=== PATIENT | female | born 1965 | race Caucasian/White ===

== ENCOUNTER 2016-05-06 19:47 | Emergency (ER) | payer MEDICARE, BC ==
[2016-05-06] MEDS ORDERED: SODIUM CHLORIDE 0.9% 1,000 ML IV STA (21:44)
[2016-05-06] MEDS ORDERED: ONDANSETRON 4 MG/2 ML VIAL IVP STA (21:44)
[2016-05-06] MEDS ORDERED: HYDROmorphone 1 MG/ML 1 ML SYRINGE IVP STA (21:44)
--- NOTE | 2016-05-06 21:59 | XR ---
EXAMINATION TYPE: XR KUB DATE OF EXAM: 05/06/2016 9:55 PM COMPARISON: NONE HISTORY: Pain TECHNIQUE: Single supine KUB image of the abdomen is obtained FINDINGS: Small bowel demonstrates no evidence for dilatation or air fluid levels. Gas and fecal material is seen in non-distended colon. No convincing evidence for pneumoperitoneum. No unusual calcifications. The lung bases are clear. The osseous structures are intact. IMPRESSION: 1. Overall nonobstructive bowel gas pattern.
[2016-05-06 22:01] LABS: Basophils # (A) 0.1 k/uL (0-0.2); Basophils % (A) 1 %; CH 31.4; CHCM 34.9; Eosinophils # (A) 0.1 k/uL (0-0.7); Eosinophils % (A) 1 %; HCT 43.2 % (34.0-46.0); HDW 2.41; HGB 14.5 gm/dL (11.4-16.0); Luc # (Auto) 0.13; Luc % (Auto) 1; Lymphocytes # (A) 3.1 k/uL (1.0-4.8); Lymphocytes % (A) 26 %; MCH 30.2 pg (25.0-35.0); MCHC 33.5 g/dL (31.0-37.0); MCV 90.2 fL (80.0-100.0); Mean Platelet Volume 7.6; Monocytes # (A) 0.6 k/uL (0-1.0); Monocytes % (A) 5 %; Neutrophils # (A) 7.9 k/uL (1.3-7.7); Neutrophils % (A) 66 %; RDW 12.5 % (11.5-15.5); WBC 11.9 k/uL (3.8-10.6)
[2016-05-06 22:06] LABS: Appearance,Urine Cloudy (Clear); Bilirubin,Urine Negative (Negative); Glucose,Urine (UA) Negative (Negative); Ketones,Urine Negative (Negative); Leukocyte Esterase,Urine Large (Negative); Mucus,Urine Occasional /hpf; Nitrite,Urine Negative (Negative); PH, Urine 5.5 (5.0-8.0); Particle Count 5915; Protein,Urine Trace (Negative); RBC,Urine 12 /hpf (0-5); Specific Gravity,Urine 1.019 (1.001-1.035); Squamous Epithelial Cell,Urine 4 /hpf (0-4); UA Billing (MACRO vs. MICRO) MICRO; Urobilinogen,Urine <2.0 mg/dL (<2.0); WBC,Urine >182 /hpf (0-5)
[2016-05-06 22:15] LABS: ALT 42 U/L (9-52); AST 27 U/L (14-36); Alkaline Phosphatase 81 U/L (38-126); Amylase 54 U/L (30-110); Anion Gap 11 mmol/L; Blood Urea Nitrogen 21 mg/dL (7-17); Calcium 9.9 mg/dL (8.4-10.2); Carbon Dioxide 28 mmol/L (22-30); Chloride 101 mmol/L (98-107); Glucose 95 mg/dL (74-99); Non-African American GFR(MDRD) >60 (>60 ml/min/1.73 sqM); Potassium 4.1 mmol/L (3.5-5.1); Sodium 140 mmol/L (137-145); Total Bilirubin 0.7 mg/dL (0.2-1.3); Total Protein 7.5 g/dL (6.3-8.2)
--- NOTE | 2016-05-06 23:32 | CT ---
EXAMINATION TYPE: CT abdomen pelvis wo con DATE OF EXAM: 05/06/2016 11:14 PM COMPARISON: 03/14/2016 HISTORY: LT Flank pain. Hx of kidney stones. Renal stone protocol CT DLP: 872.10 mGycm Automated exposure control for dose reduction was used. TECHNIQUE: Helical acquisition of images was performed from the lung bases through the pelvis. FINDINGS: There is mild linear density at the lung bases consistent with atelectasis. There is no pleural effus ion. There is a small hiatal hernia. Liver spleen pancreas appear normal. There are clips from cholecystectomy. There is no adrenal mass. Kidneys have normal size. There is no hydronephrosis. Ureters are not dilated. There is a 1 cm cyst o n the posterior right kidney. There is no sign of a renal calculus. There is no retroperitoneal adenopathy. There is no ascites. Appendix appears normal. I see no intest inal wall thickening. There are no dilated loops. Bladder distends smoothly. There is narrowing of th e L4-5 disc space with spur formation. IMPRESSION: THERE IS PATCHY ATELECTASIS AT THE LUNG BASES THIS IS SIMILAR TO OLD EXAM. NO RENAL STONE OR OBSTRUCT ION. NORMAL APPENDIX. THERE IS NO ADVERSE CHANGE COMPARED TO OLD EXAM.
--- NOTE | 2016-05-06 23:44 | ED ---
Abdominal Pain HPI - General Chief Complaint: Abdominal Pain Stated Complaint: poss kidney stone Time Seen by Provider: 05/06/16 21:23 Source: patient, family, RN notes reviewed Mode of arrival: ambulatory Limitations: no limitations - History of Present Illness Initial Comments: Patient is a 51-year-old female presenting to the with chief complaint of left flank pain for one day. Patient reports she has history of kidney stones. She states that this pain feels similar to previous kidney stones. She states that the pain is severe and mainly is in the left flank. She denies any specific abdominal pain. She denies any nausea or vomiting. States her pain currently 10 out of 10. There is any recent fever or chills. She denies dysuria , or UTI symptoms. Past medical history sigificant for left leg amuptation. - Related Data Home Medications Medication Instructions Recorded Confirmed Atorvastatin [Lipitor] 40 mg PO HS 05/06/16 05/06/16 Carisoprodol [Soma] 350 mg PO BID PRN 05/06/16 05/06/16 Cholecalciferol [Vitamin D3] 2,000 unit PO DAILY 05/06/16 05/06/16 Cyanocobalamin [Vitamin B-12] 1,000 mcg PO DAILY 05/06/16 05/06/16 Escitalopram [Lexapro] 20 mg PO DAILY 05/06/16 05/06/16 Gabapentin [Neurontin] 300 mg PO TID PRN 05/06/16 05/06/16 Hydrochlorothiazide [Hydrodiuril] 25 mg PO DAILY 05/06/16 05/06/16 LORazepam [Ativan] 1 mg PO DAILY PRN 05/06/16 05/06/16 Loratadine [Claritin] 10 mg PO DAILY 05/06/16 05/06/16 Meloxicam [Mobic] 7.5 mg PO DAILY 05/06/16 05/06/16 Multivitamins, Thera [Multivitamin] 1 tab PO DAILY 05/06/16 05/06/16 Travoprost [Travatan Z 0.004%] 1 drop LEFT EYE HS 05/06/16 05/06/16 Vitamin B Complex 1 cap PO DAILY 05/06/16 05/06/16 metFORMIN HCL [Glucophage] 500 mg PO BID 05/06/16 05/06/16 Previous Rx's Medication Instructions Recorded Acetaminophen-Codeine 300-30mg 1 tab PO Q4H PRN #12 tablet 05/07/16 [Tylenol #3] Ciprofloxacin HCl [Cipro] 500 mg PO Q12HR #14 tablet 05/07/16 Allergies Allergy/AdvReac Type Severity Reaction Status Date / Time clarithromycin [From Biaxin] AdvReac Severe Nausea & Verified 05/06/16 21:26 Vomiting Review of Systems ROS Statement: Those systems with pertinent positive or pertinent negative responses have been documented in the HPI. ROS Other: All systems not noted in ROS Statement are negative. Past Medical History Past Medical History: Diabetes Mellitus, Hyperlipidemia Additional Past Medical History / Comment(s): depression, anxiety, History of Any Multi-Drug Resistant Organisms: None Reported Past Psychological History: Anxiety, Depression Smoking Status: Current every day smoker Past Alcohol Use History: None Reported Past Drug Use History: None Reported General Exam - General Exam Comments Initial Comments: Patient is a pleasant 51-year-old female. She is on appear to be in any acute distress. Limitations: no limitations General appearance: alert, in no apparent distress Head exam: Present: atraumatic, normocephalic, normal inspection Eye exam: Present: normal appearance, PERRL, EOMI. Absent: scleral icterus, conjunctival injection, periorbital swelling ENT exam: Present: normal exam, mucous membranes moist Neck exam: Present: normal inspection. Absent: tenderness, meningismus, lymphadenopathy Respiratory exam: Present: normal lung sounds bilaterally. Absent: respiratory distress, wheezes, rales, rhonchi, stridor Cardiovascular Exam: Present: regular rate, normal rhythm, normal heart sounds. Absent: systolic murmur, diastolic murmur, rubs, gallop, clicks GI/Abdominal exam: Present: soft, tenderness (left flank), normal bowel sounds. Absent: distended, guarding, rebound, rigid Extremities exam: Present: normal inspection, full ROM, normal capillary refill. Absent: tenderness, pedal edema, joint swelling, calf tenderness Back exam: Present: normal inspection Neurological exam: Present: alert, oriented X3, CN II-XII intact Psychiatric exam: Present: normal affect, normal mood Course Vital Signs 05/06/16 05/06/16 05/07/16 19:50 22:26 01:33 Temperature 99.2 F 97.2 F L Pulse Rate 81 65 70 Respiratory 20 18 16 Rate Blood Pressure 143/78 118/65 140/85 O2 Sat by Pulse 97 96 95 Oximetry Medical Decision Making - Medical Decision Making Patient is a 51 year old female with approximately 2 days of left flank pain. Labs show evidence of UTI with many WBC and a few RBC. CT shows no stones and no signs of hydronephrosis or pyelonephritis. Patient reports pain is managed well at this time. Patient does have mild leukocytosis of 11.4. Patient given a gram of Rocephin for UTI in EC. PAtient states she would like to go home for the evening and follow up with PCP and urologist. Patient will be discharged with PO cipro and pain management. Patient understands treatment plan, and return parameters discussed. - Lab Data Result diagrams: 05/06/16 21:27 05/06/16 21:27 Lab Results 05/06/16 05/06/16 05/06/16 Range/Units 21:27 21:27 21:27 WBC 11.9 H (3.8-10.6) k/uL RBC 4.80 (3.80-5.40) m/uL Hgb 14.5 (11.4-16.0) gm/dL Hct 43.2 (34.0-46.0) % MCV 90.2 (80.0-100.0) fL MCH 30.2 (25.0-35.0) pg MCHC 33.5 (31.0-37.0) g/dL RDW 12.5 (11.5-15.5) % Plt Count 233 (150-450) k/uL Neutrophils % 66 % Lymphocytes % 26 % Monocytes % 5 % Eosinophils % 1 % Basophils % 1 % Neutrophils # 7.9 H (1.3-7.7) k/uL Lymphocytes # 3.1 (1.0-4.8) k/uL Monocytes # 0.6 (0-1.0) k/uL Eosinophils # 0.1 (0-0.7) k/uL Basophils # 0.1 (0-0.2) k/uL Sodium 140 (137-145) mmol/L Potassium 4.1 (3.5-5.1) mmol/L Chloride 101 (98-107) mmol/L Carbon Dioxide 28 (22-30) mmol/L Anion Gap 11 mmol/L BUN 21 H (7-17) mg/dL Creatinine 0.57 (0.52-1.04) mg/dL Est GFR (MDRD) Af Amer >60 (>60 ml/min/1.73 sqM) Est GFR (MDRD) Non-Af >60 (>60 ml/min/1.73 sqM) Glucose 95 (74-99) mg/dL Plasma Lactic Acid Mike (0.7-2.0) mmol/L Calcium 9.9 (8.4-10.2) mg/dL Total Bilirubin 0.7 (0.2-1.3) mg/dL AST 27 (14-36) U/L ALT 42 (9-52) U/L Alkaline Phosphatase 81 (38-126) U/L Total Protein 7.5 (6.3-8.2) g/dL Albumin 4.6 (3.5-5.0) g/dL Amylase 54 (30-110) U/L Lipase 186 (23-300) U/L Urine Color Yellow Urine Appearance Cloudy H (Clear) Urine pH 5.5 (5.0-8.0) Ur Specific [place] 1.019 (1.001-1.035) Urine Protein Trace H (Negative) Urine Glucose (UA) Negative (Negative) Urine Ketones Negative (Negative) Urine Blood Negative (Negative) Urine Nitrate Negative (Negative) Urine Bilirubin Negative (Negative) Urine Urobilinogen <2.0 (<2.0) mg/dL Ur Leukocyte Esterase Large H (Negative) Urine RBC 12 H (0-5) /hpf Urine WBC >182 H (0-5) /hpf Ur Squamous Epith Cells 4 (0-4) /hpf Urine Mucus Occasional H (None) /hpf 05/06/16 Range/Units 21:27 WBC (3.8-10.6) k/uL RBC (3.80-5.40) m/uL Hgb (11.4-16.0) gm/dL Hct (34.0-46.0) % MCV (80.0-100.0) fL MCH (25.0-35.0) pg MCHC (31.0-37.0) g/dL RDW (11.5-15.5) % Plt Count (150-450) k/uL Neutrophils % % Lymphocytes % % Monocytes % % Eosinophils % % Basophils % % Neutrophils # (1.3-7.7) k/uL Lymphocytes # (1.0-4.8) k/uL Monocytes # (0-1.0) k/uL Eosinophils # (0-0.7) k/uL Basophils # (0-0.2) k/uL Sodium (137-145) mmol/L Potassium (3.5-5.1) mmol/L Chloride (98-107) mmol/L Carbon Dioxide (22-30) mmol/L Anion Gap mmol/L BUN (7-17) mg/dL Creatinine (0.52-1.04) mg/dL Est GFR (MDRD) Af Amer (>60 ml/min/1.73 sqM) Est GFR (MDRD) Non-Af (>60 ml/min/1.73 sqM) Glucose (74-99) mg/dL Plasma Lactic Acid Mike 1.2 (0.7-2.0) mmol/L Calcium (8.4-10.2) mg/dL Total Bilirubin (0.2-1.3) mg/dL AST (14-36) U/L ALT (9-52) U/L Alkaline Phosphatase (38-126) U/L Total Protein (6.3-8.2) g/dL Albumin (3.5-5.0) g/dL Amylase (30-110) U/L Lipase (23-300) U/L Urine Color Urine Appearance (Clear) Urine pH (5.0-8.0) Ur Specific [place] (1.001-1.035) Urine Protein (Negative) Urine Glucose (UA) (Negative) Urine Ketones (Negative) Urine Blood (Negative) Urine Nitrate (Negative) Urine Bilirubin (Negative) Urine Urobilinogen (<2.0) mg/dL Ur Leukocyte Esterase (Negative) Urine RBC (0-5) /hpf Urine WBC (0-5) /hpf Ur Squamous Epith Cells (0-4) /hpf Urine Mucus (None) /hpf - Radiology Data Radiology results: report reviewed KUB shows no acute abnormalities, and normal gas pattern. Abdomen and Pelvis CT show no renal stones, continued atelectasis of bilateral lung bases from previous exams, and no other acute abnormalities. Disposition Clinical Impression: UTI (urinary tract infection) Disposition: HOME SELF-CARE Condition: Good Instructions: Urinary Tract Infection in Women (ED) Additional Instructions: Patient started to follow-up with primary care provider in one to 2 days For repeat urinalysis. Return to the EC if any alarming signs or symptoms occur. Follow-up with Dr. Kiran the urologist. Rest, increase fluids. Prescriptions: Acetaminophen-Codeine 300-30mg [Tylenol #3] 1 tab PO Q4H PRN #12 tablet PRN Reason: Pain Ciprofloxacin HCl [Cipro] 500 mg PO Q12HR #14 tablet Referrals: George Cardona MD [Primary Care Provider] - 1-2 days Time of Disposition: 00:46
[2016-05-07 01:34] VITALS: BP 140/85; PULSE 70; RESP 16; TEMP 97.2
== END 2016-05-07 01:33 | disposition home or self-care (01) ==
LOC: EC 19:47
DX: N39.0 Urinary tract infection, site not specified (principal); E78.5 Hyperlipidemia, unspecified; F17.200 Nicotine dependence, unspecified, uncomplicated; F41.9 Anxiety disorder, unspecified; F32.9 Major depressive disorder, single episode, unspecified; Z88.1 Allergy status to other antibiotic agents; Z79.899 Other long term (current) drug therapy; Z79.84 Long term (current) use of oral hypoglycemic drugs
CPT/HCPCS: 99284; 96374; 96375; 96361; 36415; 80053; 82150; 83605; 83690; 85025; 81001; 87040; 74000; 74176; J2405; J0696; J1170

== ENCOUNTER 2016-05-30 06:59 | Day surgery (SDC) | payer MEDICARE, BC ==
[2016-05-27 11:08] VITALS: BMI 33.5
[~2016-05-30 06:59] MED LIST: DEXAMETHASONE SOD PHOSPHATE 10 MG/ML 1 ML VIAL IV ONE; HYDROmorphone 1 MG/ML 1 ML SYRINGE IVP PRN; LACTATED RINGERS 1,000 ML IV SCH; MIDAZOLAM 2 MG/2 ML VIAL IV PRN; ONDANSETRON 4 MG/2 ML VIAL IVP ONE
[2016-05-30] MEDS ORDERED: LACTATED RINGERS 1,000 ML IV ONE (07:05)
[2016-05-30 07:20] VITALS: TEMP 09.2
[2016-05-30 07:41] LABS: Glucose,Whole Blood 111 mg/dL (75-99)
[2016-05-30] MEDS ORDERED: MIDAZOLAM 2 MG/2 ML VIAL ONE (08:25)
[2016-05-30] MEDS ORDERED: PROPOFOL 10 MG/ML 20 ML VIAL IV ONE (08:25)
[2016-05-30] MEDS ORDERED: ONDANSETRON 4 MG/2 ML VIAL ONE (08:25)
--- NOTE | 2016-05-30 08:54 | P.PCN ---
Date of Procedure: 05/30/16 Procedure(s) Performed: Procedure: Total colonoscopy. Preoperative diagnosis: Screening for neoplasia. Postoperative diagnosis: Exam within normal limits. Preparation: HalfLytely prep. Sedation: Was provided by anesthesia. Brief clinical history: The patient is a 51-year-old female who is referred for this evaluation for screening for neoplasia age being her risk factor. She has no abdominal complaints, bleeding or anemia. No family history of colon cancer. This would be her first colonoscopy. Procedure: With the patient on her left lateral decubitus position and after informed consent and adequate sedation, the perianal area was inspected and it did not show any fissures or fistulas. There were no masses felt on digital rectal examination. The Olympus CFQ 160L video colonoscope was then inserted in the rectum in the usual fashion and advanced to the cecum. The mucosa appeared healthy. No polyps or tumors were seen or any obvious diverticular disease or other pathology. I retroflexed endoscope in the rectum before the endoscope was withdrawn. The patient tolerated the procedure well. Plan: The patient was reassured. She will follow-up with you as planned and I recommended repeat exam in 10 years.
[2016-05-30 09:00] LABS: Glucose,Whole Blood 110 mg/dL (75-99)
[2016-05-30 09:13] VITALS: BP 118/84; PULSE 68; RESP 18
== END 2016-05-30 09:40 | disposition home or self-care (01) ==
LOC: ORWHC2ENDO 06:59
DX: Z12.11 Encounter for screening for malignant neoplasm of colon (principal); E78.5 Hyperlipidemia, unspecified; E11.9 Type 2 diabetes mellitus without complications; Z79.84 Long term (current) use of oral hypoglycemic drugs; F17.200 Nicotine dependence, unspecified, uncomplicated; F32.9 Major depressive disorder, single episode, unspecified; Z86.718 Personal history of other venous thrombosis and embolism; Z88.1 Allergy status to other antibiotic agents
CPT/HCPCS: J2250; J2405; J2704; G0121; 99153

== ENCOUNTER → 2016-06-04 | Outpatient (CLI) | payer MEDICARE, BC ==
--- NOTE | 2016-06-04 10:04 | MM ---
Reason for exam: screening (asymptomatic). Last mammogram was performed 1 year and 10 months ago. History: Patient had first child at age 31. Physical Findings: A clinical breast exam by your physician is recommended on an annual basis and results should be correlated with mammographic findings. MG 3D Screening Mammo W/Cad Bilateral CC and MLO view(s) were taken. Prior study comparison: July 29, 2014, bilateral MG screening mammo w CAD. March 17, 2012, [facility] DIGITAL LEFT BREAST MAMMOGRAM w/CAD. There are scattered fibroglandular densities. There is chronic nodularity bilaterally. There is no dominant lesion. ASSESSMENT: Benign, BI-RAD 2 RECOMMENDATION: Routine screening mammogram of both breasts in 1 year.
== END | disposition home or self-care (01) ==
LOC: RADMAMWWP 07:54
PROVIDERS: ATTEND Internal Medicine
DX: Z12.31 Encounter for screening mammogram for malignant neoplasm of breast (principal)
CPT/HCPCS: 77063; G0202

== ENCOUNTER → 2017-08-20 | Outpatient (CLI) | payer MEDICARE, BC ==
--- NOTE | 2017-08-22 10:15 | MM ---
Reason for exam: screening (asymptomatic). Last mammogram was performed 1 year and 3 months ago. History: Patient had first child at age 31. Physical Findings: A clinical breast exam by your physician is recommended on an annual basis and results should be correlated with mammographic findings. MG 3D Screening Mammo W/Cad Bilateral CC and MLO view(s) were taken. Prior study comparison: June 04, 2016, bilateral MG 3d screening mammo w/cad. July 29, 2014, bilateral MG screening mammo w CAD. The breast tissue is heterogeneously dense. This may lower the sensitivity of mammography. There are benign appearing stable circumscribed masses back to 2014. No suspicious abnormality. No significant changes when compared with prior studies. ASSESSMENT: Benign, BI-RAD 2 RECOMMENDATION: Routine screening mammogram of both breasts in 1 year.
== END | disposition home or self-care (01) ==
LOC: RADMAMWWP 15:53
PROVIDERS: ATTEND Internal Medicine
DX: Z12.31 Encounter for screening mammogram for malignant neoplasm of breast (principal)
CPT/HCPCS: 77063; 77067

== ENCOUNTER 2017-12-22 11:10 | Inpatient (IN) | payer MEDICARE, BC ==
[2017-12-22] MEDS ORDERED: SODIUM CHLORIDE 0.9% 1,000 ML IV ONE (11:37)
[2017-12-22] MEDS ORDERED: MORPHINE SULFATE 4 MG/ML SYRINGE IVP STA (11:37)
[2017-12-22 12:11] LABS: Basophils % (A) 1 %; Eosinophils # (A) 0.2 k/uL (0-0.7); Eosinophils % (A) 3 %; HCT 39.2 % (34.0-46.0); HGB 13.2 gm/dL (11.4-16.0); Lymphocytes # (A) 1.9 k/uL (1.0-4.8); Lymphocytes % (A) 35 %; MCH 30.2 pg (25.0-35.0); MCHC 33.7 g/dL (31.0-37.0); MCV 89.7 fL (80.0-100.0); Mean Platelet Volume 6.9; Monocytes # (A) 0.4 k/uL (0-1.0); Monocytes % (A) 7 %; Neutrophils # (A) 2.8 k/uL (1.3-7.7); Neutrophils % (A) 51 %; Platelet Count 188 k/uL (150-450); RBC 4.37 m/uL (3.80-5.40); RDW 13.1 % (11.5-15.5); WBC 5.4 k/uL (3.8-10.6)
[2017-12-22 12:16] LABS: Anion Gap 9 mmol/L; Blood Urea Nitrogen 13 mg/dL (7-17); Calcium 9.1 mg/dL (8.4-10.2); Carbon Dioxide 23 mmol/L (22-30); Chloride 105 mmol/L (98-107); Glucose 107 mg/dL (74-99); Potassium 4.1 mmol/L (3.5-5.1); Sodium 137 mmol/L (137-145)
--- NOTE | 2017-12-22 12:21 | ED ---
General Adult HPI - General Chief complaint: Headache Stated complaint: Headache, shingles Time Seen by Provider: 12/22/17 11:18 Source: patient Mode of arrival: wheelchair Limitations: physical limitation - History of Present Illness Initial comments: 52-year-old female presenting with intractable headache that has been present for the last 3 days. Patient states that she has had shingles for the past week now is currently taking Valtrex. She states the shingles are not causing her pain at this time. The headache is right-sided, sharp shooting, intermittent, without inciting event, exacerbated by touch, and not alleviated by anything. Today she has tried Excedrin, Tylenol, gabapentin without relief. She states this does not feel similar to previous migraines. Yesterday she had subjective fevers as well as chills. She denies any coagulopathy history and denies being on any blood thinners. Denies head trauma. She denies any focal weakness or numbness. - Related Data Home Medications Medication Instructions Recorded Confirmed Atorvastatin [Lipitor] 40 mg PO DAILY 05/06/16 12/22/17 Cholecalciferol [Vitamin D3] 2,000 unit PO DAILY 05/06/16 12/22/17 Cyanocobalamin [Vitamin B-12] 1,000 mcg PO DAILY 05/06/16 12/22/17 Gabapentin [Neurontin] 300 mg PO TID 05/06/16 12/22/17 Hydrochlorothiazide [Hydrodiuril] 25 mg PO DAILY 05/06/16 12/22/17 LORazepam [Ativan] 1 mg PO DAILY PRN 05/06/16 12/22/17 Meloxicam [Mobic] 7.5 mg PO DAILY 05/06/16 12/22/17 Multivitamins, Thera [Multivitamin] 1 tab PO DAILY 05/06/16 12/22/17 Vitamin B Complex 1 cap PO DAILY 05/06/16 12/22/17 metFORMIN HCL [Glucophage] 500 mg PO BID 05/06/16 12/22/17 Escitalopram [Lexapro] 10 mg PO DAILY 05/27/16 12/22/17 Ascorbic Acid [Vitamin C] 1,000 mg PO DAILY 12/22/17 12/22/17 Fexofenadine HCl [Marlys Allergy] 180 mg PO DAILY 12/22/17 12/22/17 Hydrocortisone/Acetic Acid 1 drop LEFT EYE HS 12/22/17 12/22/17 valACYclovir HCL [Valacyclovir] 1,000 mg PO TID 12/22/17 12/22/17 Previous Rx's Medication Instructions Recorded Acetaminophen-Codeine 300-30mg 1 tab PO Q4H PRN #12 tablet 05/07/16 [Tylenol #3] Allergies Allergy/AdvReac Type Severity Reaction Status Date / Time clarithromycin [From Biaxin] AdvReac Severe Nausea & Verified 12/22/17 11:54 Vomiting Review of Systems ROS Statement: Those systems with pertinent positive or pertinent negative responses have been documented in the HPI. Review of Systems Constitutional: Denies fever, chills Eyes: Denies change in vision, Denies pain Ears, nose, mouth, throat: Denies headaches, Denies sore throat Cardiovascular: Denies chest pain. Denies palpitations Respiratory: Denies shortness of breath, Denies cough Gastrointestinal: Denies abdominal pain. Denies nausea, vomiting, diarrhea. Genitourinary: Denies hematuria, Denies infections Musculoskeletal: Denies pain, Denies swelling Integumentary: Positive rash Neurological: Positive headache, focal weakness, focal numbness Psychiatric: Denies anxiety, Denies depression Hematologic/Lymphatic: Denies easy bleeding or bruising ROS Other: All systems not noted in ROS Statement are negative. Past Medical History Past Medical History: Diabetes Mellitus, Deep Vein Thrombosis (DVT), Hyperlipidemia Additional Past Medical History / Comment(s): hx migraines, kidney stones History of Any Multi-Drug Resistant Organisms: None Reported Past Surgical History: Section, Cholecystectomy, Orthopedic Surgery, Tonsillectomy Additional Past Surgical History / Comment(s): ACL left leg, left above knee amputation, lithotripsy x 2 Past Anesthesia/Blood Transfusion Reactions: Postoperative Nausea & Vomiting ( PONV) Past Psychological History: Depression Smoking Status: Current every day smoker Past Alcohol Use History: Rare Past Drug Use History: None Reported - Past Family History Father Family Medical History: Cancer General Exam - General Exam Comments Initial Comments: General: Awake, alert, No acute Distress HENT: Normocephalic. Atraumatic. Eyes: PERRL. EOMI. No scleral icterus. No injected conjunctiva Neck: Full ROM Chest/Lungs: Clear to auscultation bilaterally. No wheezing, rhonchi, or rales Cardiac: Regular rate, rhythm. No murmurs or rubs Abdomen/GI: Soft, nontender, nondistended. No rebound, guarding, or rigidity. Musculoskeletal: Full ROM. Left AKA Skin: Warm, dry. Right-sided arm erythematous, raised, vesicular rash in the mandibular branch of the trigeminal nerve as well as the C3 and C4 dermatomal region. No ocular involvement. No Blackmon sign. No Jann Davidson syndrome. Neurologic: A/Ox3, no weakness, no sensory deficit, no coordination deficit ( finger to nose intact). Facial nerves and facial muscles FERN )( Limitations: physical limitation Course Vital Signs 12/22/17 12/22/17 12/22/17 11:13 13:30 14:30 Temperature 98.4 F Pulse Rate 64 62 81 Respiratory 20 20 20 Rate Blood Pressure 133/69 125/59 136/56 O2 Sat by Pulse 98 97 99 Oximetry 12/22/17 12/22/17 12/22/17 16:45 17:45 19:22 Temperature 98.3 F 98.3 F Pulse Rate 70 82 82 Respiratory 20 20 20 Rate Blood Pressure 122/56 142/56 140/56 O2 Sat by Pulse 99 96 96 Oximetry Procedures - Lumbar Puncture Consent Obtained: written consent Time Out Performed: Yes Indication for Procedure: other (HSV encephalitis rule out) Patient Position: right lateral decubitus Skin Prep: Povidone-Iodine 1% Local Anesthetic Used: Lidocaine 1% Spinal Needle Gauge: 20G Spinal Needle Length: 3.5in Interspace Used: L3-L4 Complications: unable to obtain CSF Patient Tolerated Procedure: well Medical Decision Making - Medical Decision Making 52-year-old female presenting with headache. Initial exam the patient is awake alert she is tearful and holding her hands in her hand. She has a large vesicular rash extending to multiple dermatomes. Neurologically intact. Patient's laboratory workup unremarkable. CT was negative for acute process. Patient was consented for lumbar puncture. Three attempts were made but I was unable to obtain CSF. I spoke with Dr. Rivers who asked me to called Dr. Winters from infectious disease. I spoke with Dr. Winters who agreed with my treatment plan. I spoke with anesthesia who is unable to come down for the next few hours so elected to start Acyclovir. It was dosed for IDW and I discussed this with pharmacy. Patient currently stable for transfer to the floor. I spoke with anesthesiology and made them aware of the patient's room number. - Lab Data Result diagrams: 12/22/17 11:56 12/22/17 11:56 Lab Results 12/22/17 12/22/17 12/22/17 Range/Units 11:56 11:56 11:56 WBC 5.4 (3.8-10.6) k/uL RBC 4.37 (3.80-5.40) m/uL Hgb 13.2 (11.4-16.0) gm/dL Hct 39.2 (34.0-46.0) % MCV 89.7 (80.0-100.0) fL MCH 30.2 (25.0-35.0) pg MCHC 33.7 (31.0-37.0) g/dL RDW 13.1 (11.5-15.5) % Plt Count 188 (150-450) k/uL Neutrophils % 51 % Lymphocytes % 35 % Monocytes % 7 % Eosinophils % 3 % Basophils % 1 % Neutrophils # 2.8 (1.3-7.7) k/uL Lymphocytes # 1.9 (1.0-4.8) k/uL Monocytes # 0.4 (0-1.0) k/uL Eosinophils # 0.2 (0-0.7) k/uL Basophils # 0.0 (0-0.2) k/uL PT 9.9 (9.0-12.0) sec INR 1.0 (<1.2) Sodium 137 (137-145) mmol/L Potassium 4.1 (3.5-5.1) mmol/L Chloride 105 (98-107) mmol/L Carbon Dioxide 23 (22-30) mmol/L Anion Gap 9 mmol/L BUN 13 (7-17) mg/dL Creatinine 0.53 (0.52-1.04) mg/dL Est GFR (CKD-EPI)AfAm >90 (>60 ml/min/1.73 sqM) Est GFR (CKD-EPI)NonAf >90 (>60 ml/min/1.73 sqM) Glucose 107 H (74-99) mg/dL Calcium 9.1 (8.4-10.2) mg/dL Disposition 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
[2017-12-22 12:26] LABS: Prothrombin Time 9.9 sec (9.0-12.0)
--- NOTE | 2017-12-22 12:49 | CT ---
EXAMINATION TYPE: CT brain wo con DATE OF EXAM: 12/22/2017 COMPARISON: None HISTORY: Pain in head, Patient has shingles CT DLP: [address] of the brain was performed. The ventricles, basal cisterns and sulci overlying the cerebral convexities demonstrate mild enlargem ent. There is no evidence for intracranial hemorrhage or sulcal effacement. There is decreased attenuation about the periventricular white matter and deep white matter of both c erebral hemispheres, compatible with chronic small vessel ischemia. Differential diagnosis does inclu de demyelination. No mass effects are seen.No midline shift. Osseous calvarium is intact. If symptoms persist consider MRI. IMPRESSION: 1. Age related atrophic and chronic small vessel ischemic change without acute intracranial process s een at this time.
[2017-12-22] MEDS ORDERED: HYDROmorphone 1 MG/ML 1 ML SYRINGE IVP STA ×2 (13:31→15:28)
[2017-12-22] MEDS ORDERED: LIDOCAINE 2% SYG (PF) 100 MG/5 ML MISCELLANE STA (13:45)
[2017-12-22] MEDS ORDERED: LIDOCAINE 1% (PF) 10MG/ML VIAL SQ ONE (14:15)
[2017-12-22] MEDS ORDERED: LIDOCAINE (PF) 10 MG/ML 2 ML VIAL SQ STA (14:20)
[2017-12-22] MEDS ORDERED: LIDOCAINE 1% INJ 10MG/ML (20 ML MDV) SQ STA (14:20)
[2017-12-22] MEDS ORDERED: ACYCLOVIR SODIUM 650 MG in SODIUM CHLORIDE 0.9% 100 ML IV ONE (14:36)
[2017-12-22] MEDS ORDERED: traMADol 50 MG TAB PO PRN (16:01)
[2017-12-22] MEDS ORDERED: ONDANSETRON 4 MG/2 ML VIAL IVP PRN (16:01)
[2017-12-22] MEDS ORDERED: NALOXONE 0.4 MG/ML 1 ML VIAL IV PRN (16:01)
[2017-12-22] MEDS ORDERED: IBUPROFEN 400 MG TAB PO PRN (16:01)
[2017-12-22] MEDS ORDERED: LORazepam 1 MG TAB PO PRN (16:05)
[2017-12-22] MEDS: LACTATED RINGERS 1,000 ML IV SCH (18:24)
[2017-12-22] MEDS: HYDROmorphone 1 MG/ML 1 ML SYRINGE IVP PRN (20:22)
[2017-12-22 20:45] LABS: Glucose,Whole Blood 105 mg/dL (75-99)
[2017-12-22] MEDS ORDERED: fentaNYL (PF) 50 MCG/ML 2 ML AMP IVP ONE ×2 (21:32→21:40)
[2017-12-22] MEDS ORDERED: MIDAZOLAM 2 MG/2 ML VIAL IVP ONE (21:32)
[2017-12-22] MEDS ORDERED: LACTATED RINGERS 1,000 ML IV ONE (21:32)
--- NOTE | 2017-12-22 22:08 | P.PRCPDLP ---
Date of Procedure: 12/22/17 (ADULT L.P.) Pre-op Diagnosis: encephalitis Post-op Diagnosis: same Consent signed by: patient Position: lateral decubitus Prep: betadine Anesthesia: 1 % Lidocaine Sedation: other (versed 2mg fentanyl 100mcg) Needle size: 20 ga Needle length: 3.5 Interspace: L3-4, other (L1-2) Number of attempts: 1 Opening pressure: # cm H2O (12) Fluids mls collected: 12 Fluid description: clear Complications: No Patient tolerance: very well Procedure performed by: Diego Freeman Condition: stable Disposition: floor
[2017-12-22] MEDS: GABAPENTIN 300 MG CAP PO SCH (22:36)
[2017-12-22] MEDS: metFORMIN 500 MG TAB PO SCH (22:36)
[2017-12-22 23:12] LABS: Glucose,CSF 52 mg/dL (40-70); Total Protein,CSF 84 mg/dL (12-60)
[2017-12-22 23:43] LABS: Appearance,CSF Clear; CSF Tube Number 4; CSF Tube Volume 2.8; Red Blood Cell,CSF 6 u/L (0-10)
[2017-12-22 23:44] LABS: Nucleated Cells, CSF 112 u/L (0-5)
[2017-12-22 23:45] LABS: Diff, Total Cells Cnt, CSF 100; Mononuclear WBC,CSF 100 %
[2017-12-23] MEDS: HYDROmorphone 1 MG/ML 1 ML SYRINGE IVP PRN ×7 (00:31→21:07)
[2017-12-23] MEDS: SODIUM CHLORIDE 0.9% IV SCH ×3 (03:11→17:55)
[2017-12-23] MEDS: ACYCLOVIR SODIUM IV SCH ×3 (03:11→17:55)
[2017-12-23 07:32] LABS: Glucose,Whole Blood 102 mg/dL (75-99)
[2017-12-23 07:47] LABS: Basophils % (A) 0 %; Eosinophils # (A) 0.1 k/uL (0-0.7); Eosinophils % (A) 1 %; HCT 39.5 % (34.0-46.0); HGB 12.6 gm/dL (11.4-16.0); Lymphocytes # (A) 2.1 k/uL (1.0-4.8); Lymphocytes % (A) 24 %; MCH 29.2 pg (25.0-35.0); MCHC 31.9 g/dL (31.0-37.0); MCV 91.6 fL (80.0-100.0); Mean Platelet Volume 6.5; Monocytes # (A) 0.5 k/uL (0-1.0); Monocytes % (A) 6 %; Neutrophils # (A) 5.9 k/uL (1.3-7.7); Neutrophils % (A) 68 %; Platelet Count 198 k/uL (150-450); RBC 4.31 m/uL (3.80-5.40); RDW 13.2 % (11.5-15.5); WBC 8.8 k/uL (3.8-10.6)
[2017-12-23 07:57] LABS: Anion Gap 7 mmol/L; Blood Urea Nitrogen 11 mg/dL (7-17); Calcium 8.5 mg/dL (8.4-10.2); Carbon Dioxide 24 mmol/L (22-30); Chloride 106 mmol/L (98-107); Glucose 100 mg/dL (74-99); Potassium 3.8 mmol/L (3.5-5.1); Sodium 137 mmol/L (137-145)
[2017-12-23] MEDS: CHOLECALCIFEROL 1,000 UNIT TAB PO SCH (08:22)
[2017-12-23] MEDS: ATORVASTATIN 40 MG TAB PO SCH (08:22)
[2017-12-23] MEDS: ESCITALOPRAM 10 MG TAB PO SCH (08:23)
[2017-12-23] MEDS: GABAPENTIN 300 MG CAP PO SCH ×3 (08:23→21:06)
[2017-12-23] MEDS: CYANOCOBALAMIN 500 MCG TAB PO SCH (08:23)
[2017-12-23] MEDS: MELOXICAM 7.5 MG TAB PO SCH (08:23)
[2017-12-23] MEDS: metFORMIN 500 MG TAB PO SCH ×2 (08:24→21:06)
[2017-12-23] MEDS: MULTIVITAMINS, THERA 1 EACH TAB PO SCH (08:24)
[2017-12-23 12:16] LABS: Glucose,Whole Blood 110 mg/dL (75-99)
[2017-12-23] MEDS: VITAMIN B COMPLEX PO SCH (14:25)
[2017-12-23] MEDS: ASCORBIC ACID 500 MG TAB PO SCH (14:27)
[2017-12-23] MEDS: LORATADINE 10 MG TAB PO SCH (14:27)
[2017-12-23 17:26] LABS: Glucose,Whole Blood 109 mg/dL (75-99)
--- NOTE | 2017-12-23 17:50 | HP ---
HISTORY AND PHYSICAL DATE OF SERVICE: 12/23/2017 PRESENTING COMPLAINT: Headache and rash. HISTORY OF PRESENTING COMPLAINT: A very pleasant 52-year-old patient of Dr. George Cardona here with the father. Chronic stable medical conditions include diabetes, hyperlipidemia, depression. 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 The patient on 3 days ago was working in her father's garage, helping with a tractor leaking different fluids and a few insects in there too. That day in the evening, she noticed a rash around the neck and the jaw area. There was really no pain or fever. It became a bit worse the next day. At the same time, patient noticed headache was very localized like an ice pick in 2 different spots on the right side on the same side of the head of the head. The patient did notice some fever and chills at home. On Friday, patient did go to see Dr. Cardona, who thought that patient may have herpes zoster and prescribed her Valtrex. Because the headaches persisted, she decided to come down to the ER. Patient was started on IV acyclovir and also underwent a lumbar puncture that did show 112 nucleated cells and total protein of 84, though the patient's glucose was normal at 52. Denies any vision changes. No neck stiffness. REVIEW OF SYSTEMS: CONSTITUTIONAL: Some fever and chills. HEENT: As above. RESPIRATORY: Occasional cough. CARDIOVASCULAR: None. GASTROINTESTINAL: None. GENITOURINARY: None. MUSCULOSKELETAL: None. DERMATOLOGICAL: None. HEMATOLOGIC: None. LYMPHATIC: None. PSYCHIATRY: Depression. NEUROLOGICAL: As above. No focal signs otherwise. PAST MEDICAL HISTORY: Diabetes type 2, DVT in 2006, hyperlipidemia, kidney stones, depression. PAST SURGICAL HISTORY: , cholecystectomy, tonsillectomy, of left leg, left above-knee amputation from an injury, lithotripsy x2. PSYCH HISTORY: Depression. SOCIAL HISTORY: The patient smokes less than a pack a day for close to 31 years. The patient's works out of state and lives with her son. HOME MEDICATIONS: 1. Hydrocortisone 1 drop left ear q.h.s. 2. Ativan 0.5 mg daily p.r.n. 3. Neurontin 300 mg 3 times a day. 4. Valacyclovir 1000 mg t.i.d. 5. Glucophage 500 mg b.i.d. 6. Mobic 7.5 p.o. daily. 7. Lexapro 10 mg p.o. daily. 8. Lipitor 40 mg p.o. daily. 9. Vitamin C 1000 mg p.o. daily. 10.Vitamin B complex 1 capsule p.o. daily. 11.Multivitamin 1 tablet p.o. daily. 12.Hydrochlorothiazide 25 mg a day. 13.Marlys 180 mg a day. 14.Vitamin B12 1000 mcg p.o. daily. 15.Vitamin D3 2000 units p.o. daily. 16.Tylenol No. 3. ALLERGIES: To BIAXIN. EXAMINATION: Afebrile, pulse 64, respirations 20, blood pressure 130/69, pulse 98% on room air. GENERAL APPEARANCE: Well-built, BMI 33.5, sitting up. EYES: Pupils are equal. Conjunctivae normal. HEENT: The patient has a rash on the right side of the neck with . Minimal tenderness also extending to be high in the neck above the right scapula. RESPIRATORY: Effort normal. Slightly decreased breath sounds. CARDIOVASCULAR: First and second sounds normal. No edema. ABDOMEN: Soft, nontender. Liver and spleen not palpable. LYMPHATIC: No lymph node palpable in neck or axillae. PSYCHIATRY: Alert and oriented x3. Mood and affect normal. NEUROLOGICAL: Pupils equal. Cranial nerve grossly intact. Power and sensation grossly intact. EXTREMITIES: Left above-knee amputation. INVESTIGATIONS: White count 5.4, hemoglobin 13.2. Potassium 4.1, BUN and creatinine are normal. CSF shows 112 nucleated cells 84 is the protein, glucose is 52. ASSESSMENT: 1. 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 2. Obesity; BMI 33.5. 3. Diabetes mellitus type 2 on oral hypoglycemic. 4. Hyperlipidemia. 5. Depression, not otherwise specified. 6. Left lnkre-szs-iyln amputation. 7. Chronic nicotine dependence in a cigarette smoker. PLAN: The patient is on IV acyclovir. Home medications are resumed. Give Lovenox for DVT prophylaxis. Infectious Disease was consulted. Care was discussed with the patient and father at the bedside. Questions were answered. MMODL / IJN: [id number] /
[2017-12-23] MEDS: LACTATED RINGERS 1,000 ML IV SCH (17:56)
[2017-12-23 20:42] LABS: Glucose,Whole Blood 109 mg/dL (75-99)
[2017-12-23] MEDS: ACETIC ACID/HYDROCORTISONE 2-1% DROPS 10 ML BTL LEFT EAR SCH (21:06)
--- NOTE | 2017-12-23 21:08 | CONS ---
CONSULTATION DATE OF SERVICE: 12/23/2017 REASON FOR CONSULTATION: Right C3 dermatome zoster and a question of herpes encephalitis. HISTORY OF PRESENT ILLNESS: The patient is a 52-year-old female who started to develop a vesicular rash to the right side of her neck last Friday. The patient says she went to her physician and she was diagnosed with shingles. The patient started taking Valtrex 3 times a day; however, the patient is not sure about the dose, whether it was 1 gram or 500 mg. Subsequently she started having a headache that has been mostly on the right side of the head area. Pain is described to be more of a throbbing nature, almost 110 out of 10. The patient denies any associated photophobia. Some nausea and did have an episode of vomiting. The patient has tried Tylenol and gabapentin without any relief. Hence the patient presented to the [facility] ER. The patient was evaluated by the ER physician. The patient did have a CT of the brain that was negative for any acute bleed. The patient did not have any fever and her white count has been normal. With the question of possible herpes encephalitis, she has been admitted to hospital. An LP was requested but could not be completed in the ER. It was subsequently completed by Anesthesiology. Patient's protein was 84. Glucose was normal at 52. White count was 112 and mononuclear WBC. Infectious Disease was consulted for further recommendations regarding antibiotic and antiviral therapy. REVIEW OF SYSTEMS: CONSTITUTIONAL: Positive for weakness. Denies any high-grade fever. EYES: No complaint. ENT: No complaint. RESPIRATORY: No complaint. CARDIOVASCULAR: No complaint. GENITOURINARY: No complaint. GASTROINTESTINAL: As per HPI. MUSCULOSKELETAL: No complaint. INTEGUMENTARY: As per HPI. PSYCHOLOGICAL: No complaint. ENDOCRINE: No complaint. NEUROLOGICAL: No complaint. PAST MEDICAL HISTORY: 1. Diabetes mellitus. 2. DVT. 3. Hyperlipidemia. 4. History of migraine headache. 5. Kidney stone. PAST SURGICAL HISTORY: 1. . 2. Cholecystectomy. 3. Tonsillectomy. 4. Left kiqji-dzu-aosf amputation. 5. ACL left leg. 6. Lithotripsy . SOCIAL HISTORY: The patient is currently an everyday smoker. Rarely drinks. No drug use. FAMILY HISTORY: Father with history of cancer, though unknown type. ALLERGIES: CLARITHROMYCIN. CURRENT MEDICATIONS: 1. Tylenol. 2. Acyclovir 1 gram every 8 hours. 3. Vitamin C. 4. Lipitor. 5. Vitamin D3. 6. Vitamin B12. 7. Lexapro. 8. Neurontin. 9. Hydrochlorothiazide. 10.Dilaudid. 11.Lactated Ringer. 12.Claritin. 13.Ativan. 14.Mobic. 15.Glucophage. 16.Theragran. 17.Narcan. 18.Zofran. 19.Ultram. PHYSICAL EXAMINATION: Blood pressure is 101/53 with a pulse of 85, temperature 98.1. She is 92% on room air. General description is a middle-aged female up in the room in no distress. HEENT examination shows no pallor or scleral icterus. Oral mucosa membrane is moist. No pharyngeal erythema or thrush. NECK: Trachea is central. No thyromegaly. LUNGS: Unlabored breathing. Clear to auscultation anteriorly. No wheeze or crackle. HEART: S1, S2. Regular rate and rhythm. ABDOMEN: Soft. No tenderness. No guarding or rigidity. EXTREMITIES: No edema of feet. EXAMINATION OF THE SKIN: The right C3 dermatome distribution does have vesicular lesions, not crossing in the midline, with no evidence of any significant cellulitis. Neurologically the patient is awake, alert, oriented x3. Mood and affect normal. No signs of meningeal irritation. LABS: Hemoglobin is 12.6, white count of 8.8. BUN of 11, creatinine 0.55. Electrolytes have been normal. Protein mildly elevated at 84. Glucose normal. White count of 12, mostly mononuclear. DIAGNOSTIC IMPRESSION AND PLAN: Patient with right C3 dermatomal herpes zoster in a patient admitted to hospital with a headache with associated aseptic meningitis not entirely excluded. Clinically doubt encephalitis, though. The patient currently does not look toxic. Does not have a fever or elevated white count. PLAN: 1. Acyclovir 10 mg/kg IV piggyback q.8 hours to continue. 2. Await the HSV 1 and 2 PCR and the CSF that has already been sent. 3. Contact isolation droplet isolation. 4. We will follow up on clinical condition and culture to further adjust medication if needed. Thank you for this consultation. We will follow this patient along with you. MMODL / IJN: [id number] /
[2017-12-24] MEDS: SODIUM CHLORIDE 0.9% IV SCH ×3 (01:47→17:54)
[2017-12-24] MEDS: ACYCLOVIR SODIUM IV SCH ×3 (01:47→17:54)
[2017-12-24] MEDS: HYDROmorphone 1 MG/ML 1 ML SYRINGE IVP PRN (01:47)
[2017-12-24 07:10] LABS: Glucose,Whole Blood 110 mg/dL (75-99)
[2017-12-24] MEDS: GABAPENTIN 300 MG CAP PO SCH ×3 (08:10→20:21)
[2017-12-24] MEDS: HYDROCHLOROTHIAZIDE 25 MG TAB PO SCH (08:10)
[2017-12-24] MEDS: ATORVASTATIN 40 MG TAB PO SCH (08:10)
[2017-12-24] MEDS: LORATADINE 10 MG TAB PO SCH (08:10)
[2017-12-24] MEDS: metFORMIN 500 MG TAB PO SCH ×2 (08:10→20:21)
[2017-12-24] MEDS: ASCORBIC ACID 500 MG TAB PO SCH (08:10)
[2017-12-24] MEDS: CHOLECALCIFEROL 1,000 UNIT TAB PO SCH (08:10)
[2017-12-24] MEDS: ESCITALOPRAM 10 MG TAB PO SCH (08:10)
[2017-12-24] MEDS: CYANOCOBALAMIN 500 MCG TAB PO SCH (08:10)
[2017-12-24] MEDS: MELOXICAM 7.5 MG TAB PO SCH (08:10)
[2017-12-24] MEDS: VITAMIN B COMPLEX PO SCH (08:11)
[2017-12-24] MEDS: MULTIVITAMINS, THERA 1 EACH TAB PO SCH (08:11)
[2017-12-24] MEDS: HYDROmorphone 4 MG TABLET PO PRN ×4 (08:14→22:22)
[2017-12-24 12:03] LABS: Glucose,Whole Blood 151 mg/dL (75-99)
[2017-12-24] MEDS: LACTATED RINGERS 1,000 ML IV SCH (15:42)
[2017-12-24 17:09] LABS: Glucose,Whole Blood 109 mg/dL (75-99)
[2017-12-24 17:37] LABS: Hemoglobin A1C 6.1 % (4.0-6.0)
[2017-12-24] MEDS: ACETIC ACID/HYDROCORTISONE 2-1% DROPS 10 ML BTL LEFT EAR SCH (20:22)
[2017-12-24 20:29] LABS: Glucose,Whole Blood 115 mg/dL (75-99)
--- NOTE | 2017-12-24 23:18 | PN ---
PROGRESS NOTE DATE OF SERVICE: 12/24/2017. REASON FOR FOLLOWUP: 1. Right C3 dermatome zoster. 2. Possible aseptic meningitis. INTERVAL HISTORY: The patient is afebrile. She has been breathing comfortably. Still complaining of headache to mostly the right side of the head area. The patient does report being bitten by her cat and she was not sharing the bed with her. Currently, there is no swelling, redness on the right side of the head area. Rash to the right side of the neck has not showing any worsening. No new rash. The patient denies having any chest pain, shortness of breath or cough. No abdominal pain. No diarrhea. EXAMINATION: Blood pressure 115/59 with a pulse of 73, temperature is 97.7. She is 94% on room air. General description is a middle-aged female lying in bed in no distress. RESPIRATORY SYSTEM: Unlabored breathing. Clear to auscultation anteriorly. HEART: S1, S2. Regular rate and rhythm. ABDOMEN: Soft. No tenderness. SKIN: The right C3 dermatome zoster rash. No worsening. No secondary cellulitis and not crossing the midline. Examination of the right side of the head currently with no evidence of any swelling, redness or any bite hurtado. LABS: HSV DNA by PCR is negative in the CSF. DIAGNOSTIC IMPRESSION AND PLAN: 1. Patient admitted to the hospital with right C3 dermatome zoster for which the patient will continue on IV acyclovir, transition to oral on discharge. 2. Patient with a headache and abnormal cerebrospinal fluid finding more toward possible aseptic meningitis, not an encephalitis. Herpes simplex virus DNA by PCR was negative on the cerebrospinal fluid. We will continue to monitor the patient closely. Continue with supportive care. MMODL / IJN: [id number] /
--- NOTE | 2017-12-24 23:41 | PN ---
PROGRESS NOTE DATE OF SERVICE: 12/24/2017 PRESENTING COMPLAINT: Rash, headache. INTERVAL HISTORY: This is a patient who was admitted with a diagnosis of herpes zoster and also herpes zoster meningitis. The patient did tell me this morning that she had a cat bite to the head about 2 weeks ago. There is no lesion on the head. I did discuss with Dr. Winters. We both agreed there is no clinical connection to the current presentation. The patient's headache is better. The patient is awake, tolerating a diet, sitting up, cheerful. Son is present. REVIEW OF SYSTEMS: Done for constitutional, cardiovascular, GI, pulmonary; relevant findings as above. CURRENT MEDICATIONS: Reviewed that include IV acyclovir. EXAMINATION: Afebrile, pulse 76, respirations 20, blood pressure 115/59, pulse ox 94% on room air. GENERAL APPEARANCE: Sitting up, comfortable, smiling. EYES: Pupils equal. Conjunctivae normal. HEENT: There is a rash on the right side of the neck. RESPIRATORY: Effort normal. Lungs are clear. CARDIOVASCULAR: First and second sounds normal. No edema. ABDOMEN: Soft, nontender. Liver and spleen not palpable. PSYCHIATRY: Alert and oriented x3. Mood and affect were normal. INVESTIGATIONS: Accu-Cheks are noted. Herpes simplex virus 1 and 2 DNA PCR not detected. ASSESSMENT: 1. Possible herpes zoster meningitis, not encephalitis, and herpes zoster in C2-C3 dermatome with acute presentation. 2. Obesity; BMI 33.5. 3. Diabetes mellitus type 2 on oral hypoglycemic. 4. Hyperlipidemia. 5. Depression, not otherwise specified. 6. Left above-knee amputation. 7. Chronic nicotine dependence in a cigarette smoker. PLAN: Continue with IV acyclovir. Care was discussed with Dr. Winters from infectious disease. The patient clinically is doing better. Follow. MMODL / IJN: [id number] /
[2017-12-25] MEDS: SODIUM CHLORIDE 0.9% IV SCH ×3 (02:39→17:58)
[2017-12-25] MEDS: ACYCLOVIR SODIUM IV SCH ×3 (02:39→17:58)
[2017-12-25] MEDS: HYDROmorphone 4 MG TABLET PO PRN ×3 (02:39→18:10)
[2017-12-25 07:23] LABS: Glucose,Whole Blood 130 mg/dL (75-99)
[2017-12-25 08:31] LABS: Basophils % (A) 0 %; Eosinophils # (A) 0.1 k/uL (0-0.7); Eosinophils % (A) 1 %; HCT 38.2 % (34.0-46.0); HGB 11.9 gm/dL (11.4-16.0); Lymphocytes # (A) 1.4 k/uL (1.0-4.8); Lymphocytes % (A) 19 %; MCH 29.8 pg (25.0-35.0); MCHC 31.3 g/dL (31.0-37.0); MCV 95.2 fL (80.0-100.0); Monocytes # (A) 0.5 k/uL (0-1.0); Monocytes % (A) 6 %; Neutrophils # (A) 5.3 k/uL (1.3-7.7); Neutrophils % (A) 71 %; Platelet Count 180 k/uL (150-450); RBC 4.01 m/uL (3.80-5.40); RDW 13.5 % (11.5-15.5); WBC 7.4 k/uL (3.8-10.6)
[2017-12-25 08:53] LABS: Albumin 3.3 g/dL (3.5-5.0); Calcium 8.9 mg/dL (8.4-10.2); Potassium 4.2 mmol/L (3.5-5.1); Total Bilirubin 1.2 mg/dL (0.2-1.3); Total Protein 5.9 g/dL (6.3-8.2)
[2017-12-25] MEDS: ASCORBIC ACID 500 MG TAB PO SCH (09:15)
[2017-12-25] MEDS: CYANOCOBALAMIN 500 MCG TAB PO SCH (09:15)
[2017-12-25] MEDS: ATORVASTATIN 40 MG TAB PO SCH (09:15)
[2017-12-25] MEDS: MELOXICAM 7.5 MG TAB PO SCH (09:16)
[2017-12-25] MEDS: LORATADINE 10 MG TAB PO SCH (09:16)
[2017-12-25] MEDS: ESCITALOPRAM 10 MG TAB PO SCH (09:16)
[2017-12-25] MEDS: HYDROCHLOROTHIAZIDE 25 MG TAB PO SCH (09:16)
[2017-12-25] MEDS: metFORMIN 500 MG TAB PO SCH ×2 (09:16→20:42)
[2017-12-25] MEDS: CHOLECALCIFEROL 1,000 UNIT TAB PO SCH (09:16)
[2017-12-25] MEDS: VITAMIN B COMPLEX PO SCH (09:17)
[2017-12-25] MEDS: GABAPENTIN 300 MG CAP PO SCH ×3 (09:17→20:42)
[2017-12-25] MEDS: MULTIVITAMINS, THERA 1 EACH TAB PO SCH (09:17)
[2017-12-25 11:28] LABS: Glucose,Whole Blood 119 mg/dL (75-99)
--- NOTE | 2017-12-25 14:07 | PN ---
PROGRESS NOTE DATE OF SERVICE: 12/25/2017 REASON FOR FOLLOWUP: 1. Right C3 dermatome zoster. 2. Aseptic meningitis. INTERVAL HISTORY: The patient is currently afebrile. She is still complaining of pain to the right side of the head area. Patient denies having any chest pain, shortness of breath or cough. No abdominal pain, no worsening of the rash. PHYSICAL EXAMINATION: Blood pressure 116/56 with a pulse of 80, temperature 96.9. She is 92% on room air. General description is a middle-aged female, up in the bed in no distress. HEENT EXAMINATION: Rash to the right C3 dermatome with no worsening. No rash was noticed in the skull area. LUNGS: Unlabored breathing, clear to auscultation anteriorly. HEART: S1, S2. Regular rate and rhythm. ABDOMEN: Soft, no tenderness. LABS: Hemoglobin 11.1, white count 7.4, BUN of 12, creatinine 1.01. DIAGNOSTIC IMPRESSION AND PLAN: 1. Patient with right C3 dermatome zoster for which the patient will continue on the IV acyclovir, transition to the oral to finish a 7-day course of therapy. 2. Patient with possible aseptic meningitis. Clinically doubt encephalitis or HSV. was negative as well. Plan of care discussed with the admitting physician. MMODL / IJN: [id number] /
[2017-12-25] MEDS: LACTATED RINGERS 1,000 ML IV SCH (16:12)
[2017-12-25 17:04] LABS: Glucose,Whole Blood 109 mg/dL (75-99)
[2017-12-25] MEDS: ACETIC ACID/HYDROCORTISONE 2-1% DROPS 10 ML BTL LEFT EAR SCH (20:41)
[2017-12-25 20:45] LABS: Glucose,Whole Blood 121 mg/dL (75-99)
[2017-12-26] MEDS: SODIUM CHLORIDE 0.9% IV SCH ×3 (02:40→16:51)
[2017-12-26] MEDS: ACYCLOVIR SODIUM IV SCH ×3 (02:40→16:51)
[2017-12-26] MEDS: ACETAMINOPHEN TAB 325 MG TAB PO PRN ×2 (06:40→12:42)
[2017-12-26 07:28] LABS: Glucose,Whole Blood 125 mg/dL (75-99)
--- NOTE | 2017-12-26 07:38 | PN ---
PROGRESS NOTE DATE OF SERVICE: 12/25/2017 PRESENTING COMPLAINT: Rash, headache. INTERVAL HISTORY: This is a patient who presented with C2-C3 dermatome, herpes zoster infection and aseptic meningitis. Patient's herpes simplex virus PCR came back to be negative. Patient still has some headache on the right side. Otherwise, patient is comfortable, tolerating a diet, cheerful. Patient's and father present. No fever, no chills. REVIEW OF SYSTEMS: Done for constitutional, cardiovascular, GI, pulmonary, neuro; relevant findings as above. CURRENT MEDICATIONS: Include IV acyclovir. PHYSICAL EXAMINATION: Afebrile, pulse 72, respiration 16, blood pressure 109/67, pulse 94% on room air. GENERAL APPEARANCE: Sitting up, awake, comfortable, smiling. EYES: Pupils equal, conjunctivae are normal. HEENT: External appearance of nose and ear normal, oral cavity normal. Right-sided neck shows the rash is healing. RESPIRATORY: Effort normal. Lungs are clear. CARDIOVASCULAR: First and second sounds normal. No edema. ABDOMEN: Soft, nontender. Liver and spleen not palpable. PSYCHIATRY: Alert and oriented x3. Mood and affect normal. Left above-knee amputation. INVESTIGATIONS: White count 8.8, hemoglobin 12.6. ASSESSMENT: 1. Herpes zoster in the C2-C3 dermatome. 2. Aseptic meningitis, patient's herpes simplex virus is negative as discussed with Dr. Winters. 3. Obesity; body mass index 33.5. 4. Diabetes mellitus type 2 on oral hypoglycemic. 5. Hyperlipidemia. 6. Depression, not otherwise specified. 7. Chronic left above-knee amputation. 8. Chronic nicotine dependence, patient is a cigarette smoker. PLAN: Continue with IV acyclovir given there are still episodes of headaches which likely is from the aseptic meningitis. Will do an MRI of the brain with and without contrast. Care was discussed at length with the patient, the and the father. MMODL / IJN: [id number] /
[2017-12-26] MEDS: VITAMIN B COMPLEX PO SCH (08:10)
[2017-12-26] MEDS: ATORVASTATIN 40 MG TAB PO SCH (08:12)
[2017-12-26] MEDS: MULTIVITAMINS, THERA 1 EACH TAB PO SCH (08:12)
[2017-12-26] MEDS: ESCITALOPRAM 10 MG TAB PO SCH (08:12)
[2017-12-26] MEDS: CHOLECALCIFEROL 1,000 UNIT TAB PO SCH (08:12)
[2017-12-26] MEDS: GABAPENTIN 300 MG CAP PO SCH ×2 (08:12→15:13)
[2017-12-26] MEDS: CYANOCOBALAMIN 500 MCG TAB PO SCH (08:12)
[2017-12-26] MEDS: HYDROCHLOROTHIAZIDE 25 MG TAB PO SCH (08:12)
[2017-12-26] MEDS: ASCORBIC ACID 500 MG TAB PO SCH (08:12)
[2017-12-26] MEDS: LORATADINE 10 MG TAB PO SCH (08:12)
[2017-12-26] MEDS: MELOXICAM 7.5 MG TAB PO SCH (08:12)
[2017-12-26] MEDS: metFORMIN 500 MG TAB PO SCH (08:13)
[2017-12-26 12:05] LABS: Glucose,Whole Blood 120 mg/dL (75-99)
--- NOTE | 2017-12-26 14:17 | PN ---
PROGRESS NOTE DATE OF SERVICE: 12/26/2017. REASON FOR FOLLOWUP: 1. Right C3 dermatome zoster. 2. Aseptic meningitis. INTERVAL HISTORY: The patient is afebrile. She still has off and on headache though no significant issue to the neck area has decreased in intensity. Denies any chest pain, shortness of breath or cough. No abdominal pain or diarrhea. PHYSICAL EXAMINATION: On examination, blood pressure 125/60 with the pulse of 53, temperature 98.1. She is 95% on room air. General description is a middle aged female up in the bed in no distress. RESPIRATORY SYSTEM: Unlabored breathing, clear to auscultation anteriorly. HEART: S1, S2. Regular rate and rhythm. ABDOMEN: Soft, no tenderness. Right neck rash has decreased intensity. LABS: No new labs have been obtained today. CSF culture has been negative. Blood culture negative. DIAGNOSTIC IMPRESSION AND PLAN: Patient admitted to the hospital with right-sided neck vesicular rash and headache with concern for possible encephalitis. No fever or elevated white count. HSV DNA by PCR negative and the CSF unlikely encephalitis however with elevated white count and protein may be an aseptic meningitis, which should be treated symptomatically. As for her right C3 dermatome zoster, patient is on IV acyclovir, which can be transitioned to oral Valtrex for about 4 to 5 more days to finish a course of therapy. Continue supportive care. MMODL / IJN: [id number] /
[2017-12-26] MEDS ORDERED: LORazepam 2 MG/ML INJ IV ONE (16:00)
--- NOTE | 2017-12-26 16:50 | MR ---
EXAMINATION TYPE: MR brain wo/w con DATE OF EXAM: 12/26/2017 COMPARISON: HISTORY: Migraine TECHNIQUE: Multiplanar, multisequence images of the brain and brainstem is performed without and with IV contras t, utilizing 10 mL intravenous Gadavist . FINDINGS: Ventricles of normal size. There is no mass effect nor midline shift. There is no sign of i ntracranial hemorrhage. There is 1 cm area of increased signal on the T2 and FLAIR images in the righ t posterior internal capsule. There is a 5 mm focus in the lagunas-white matter junction left posterior frontal lobe. The brainstem appears normal. Corpus callosum appears normal. Sella turcica appears nor mal. There is no evidence of cortical infarct. Contrast images show no pathologic enhancement. IMPRESSION: White matter high signal foci could relate to old lacunar infarcts. No acute intracranial abnormality. Demyelinating diseases in the differential diagnosis.
[2017-12-26 16:52] VITALS: BP 121/75; PULSE 61; RESP 19; TEMP 97.4
[2017-12-26] MEDS: LACTATED RINGERS 1,000 ML IV SCH (16:55)
[2017-12-26 17:36] LABS: Glucose,Whole Blood 133 mg/dL (75-99)
--- NOTE | 2017-12-28 05:39 | DS ---
DISCHARGE SUMMARY DATE OF ADMISSION: DATE OF DISCHARGE: 12/26/17. FINAL DIAGNOSES: 1. Acute herpes zoster in the C2-C3 dermatome, present on admission. 2. Acute aseptic meningitis with herpes simplex PCR being negative. 3. Obesity; BMI 33.5. 4. Diabetes mellitus type 2 on oral hypoglycemic. 5. Hyperlipidemia. 6. Depression, not otherwise specified. 7. Chronic left above-knee amputation from injury. 8. Chronic nicotine dependence. Patient is a cigarette smoker. CONSULTATION: Dr. Winters from Infectious Disease. HOSPITAL COURSE: This pleasant 52-year-old patient presented with a headache and a rash on the right part of the neck. This is felt to be herpes zoster in the C2-C3 dermatome. The patient had seen Dr. Cardona as an outpatient, was seen and started on Valtrex. The patient is also having headaches. Lumbar puncture was done. Pictures compatible with aseptic meningitis as herpes simplex PCR came back negative. The patient did have a cat bite in the scalp 2 weeks ago, but there was no break in the scalp. The patient is having headaches and hence an MRI was done of the brain that showed some possibility of demyelinating things that did not explain the headaches. The patient is doing much better. Otherwise up and about, afebrile with normal white count. Tolerating a diet. She is being discharged. She is to follow up with Neurology as an outpatient. Cleared by Dr. Winters from Infectious Disease. On examination: Afebrile. Pulse 51, blood pressure 120/75. Lungs: Decreased breath sounds. Cardiovascular: 1st and 2nd sounds normal. Psych: AO x3. No neurological signs. Discussion and discharge planning more than 35 minutes. DISCHARGE MEDICATIONS: 1. Lipitor 40 mg a day. 2. Vitamin D3 2000 units p.o. daily. 3. Vitamin B12 1000 mcg p.o. daily. 4. Neurontin 300 mg p.o. t.i.d. 5. Hydrochlorothiazide 25 mg p.o. daily. 6. Ativan 1 mg p.o. daily p.r.n. 7. Mobic 7.5 p.o. daily. 8. Multivitamin 1 tablet p.o. daily. 9. Vitamin B complex 1 capsule p.o. daily. 10.Glucophage 500 mg p.o. b.i.d. 11.Tylenol 3 one tablet q.4h p.r.n. 12.Lexapro 10 mg p.o. daily. 13.Vitamin C 1000 mg p.o. daily. 14.Marlys 180 mg p.o. daily. 15.Hydrocortisone acetic acid 1 drop to left ear q.h.s. 16.Valacyclovir 1000 mg p.o. t.i.d., total of 15 tablets. FOLLOWUP: Follow up with Dr. Sarabia in 1 week. Follow up with Dr. George Cardona in 1 week. Discharge planning more than 35 minutes. MMODL / IJN: [id number] /
== END 2017-12-26 18:32 | disposition home or self-care (01) | DRG 76 ==
LOC: EC 11:10 → 4MS4W 16:02
PROVIDERS: ADMIT Hospitalist; ATTEND Hospitalist
PROC: 009U3ZX Drainage of Spinal Canal, Percutaneous Approach, Diagnostic (ICD-10-PCS; principal; 2017-12-22 20:05)
DX: B02.1 Zoster meningitis (principal); E11.9 Type 2 diabetes mellitus without complications; E66.9 Obesity, unspecified; E78.5 Hyperlipidemia, unspecified; F17.210 Nicotine dependence, cigarettes, uncomplicated; F32.9 Major depressive disorder, single episode, unspecified; W55.01XA Bitten by cat, initial encounter; Z68.33 Body mass index [BMI] 33.0-33.9, adult; Z79.84 Long term (current) use of oral hypoglycemic drugs; Z79.899 Other long term (current) drug therapy; Z80.9 Family history of malignant neoplasm, unspecified; Z86.718 Personal history of other venous thrombosis and embolism; Z87.442 Personal history of urinary calculi; Z89.612 Acquired absence of left leg above knee; Z99.3 Dependence on wheelchair; Z90.49 Acquired absence of other specified parts of digestive tract; Z79.891 Long term (current) use of opiate analgesic; Z88.1 Allergy status to other antibiotic agents
CPT/HCPCS: 36415; 62270; 70450; 70553; 80048; 80053; 82945; 83036; 84157; 85025; 85610; 87040; 87070; 87205; 87529; 89050; 96361; 96365; 96375; 96376; 99285

== ENCOUNTER → 2018-08-26 | Outpatient (CLI) | payer MEDICARE, BC ==
--- NOTE | 2018-08-26 12:25 | MM ---
Reason for exam: screening (asymptomatic). Last mammogram was performed 1 year ago. History: Patient is postmenopausal and had first child at age 31. Physical Findings: A clinical breast exam by your physician is recommended on an annual basis and results should be correlated with mammographic findings. MG 3D Screening Mammo W/Cad Bilateral CC and MLO view(s) were taken. Prior study comparison: August 20, 2017, bilateral MG 3d screening mammo w/cad. June 04, 2016, bilateral MG 3d screening mammo w/cad. The breast tissue is heterogeneously dense. This may lower the sensitivity of mammography. There is no discrete abnormality. No significant changes when compared with prior studies. ASSESSMENT: Negative, BI-RAD 1 RECOMMENDATION: Routine screening mammogram of both breasts in 1 year.
== END | disposition home or self-care (01) ==
LOC: RADMAMWWP 06:52
PROVIDERS: ATTEND Internal Medicine
DX: Z12.31 Encounter for screening mammogram for malignant neoplasm of breast (principal)
CPT/HCPCS: 77063; 77067

== ENCOUNTER → 2021-10-11 | Outpatient (CLI) | payer BC, MEDICARE ==
--- NOTE | 2021-10-12 07:51 | MM ---
Reason for Exam: Screening (asymptomatic). Last mammogram was performed 3 year(s) and 1 month(s) ago. Patient History: Menarche at age 11. First Full-Term at age 31. Late child-bearing (after 30). Postmenopausal. Risk Values: Martina 5 year model risk: 1.8%. NCI Lifetime model risk: 10.7%. Prior Study Comparison: 06/04/2016 Bilateral Screening Mammogram, [facility]. 08/20/2017 Bilateral Screening Mammogram, [facility]. 08/26/2018 Bilateral Screening Mammogram, [facility]. Tissue Density: The breast tissue is heterogeneously dense. This may lower the sensitivity of mammography. Findings: Analyzed By CAD. There is no suspicious group of microcalcifications or new suspicious mass in either breast. Overall Assessment: Negative, BI-RAD 1 Management: Screening Mammogram of both breasts in 1 year. A clinical breast exam by your physician is recommended on an annual basis and results should be correlated with mammographic findings. Electronically signed and approved by: Eliud Jon M.D. Radiologis
== END | disposition home or self-care (01) ==
LOC: RADMAMWWP 07:25
PROVIDERS: ATTEND Family Medicine
DX: Z12.31 Encounter for screening mammogram for malignant neoplasm of breast (principal); Z78.0 Asymptomatic menopausal state
CPT/HCPCS: 77067

== ENCOUNTER → 2022-10-15 | Outpatient (CLI) | payer BC, MEDICARE ==
--- NOTE | 2022-10-15 08:55 | MM ---
Reason for Exam: Screening (asymptomatic). Last screening mammogram was performed 12 month(s) ago. Patient History: Menarche at age 11. First Full-Term at age 31. Late child-bearing (after 30). Postmenopausal. Risk Values: Martina 5 year model risk: 1.8%. NCI Lifetime model risk: 10.5%. Prior Study Comparison: 08/20/2017 Bilateral Screening Mammogram, [facility]. 08/26/2018 Bilateral Screening Mammogram, [facility]. 10/11/2021 Bilateral MG screening mammo w CAD, [facility]. Tissue Density: There are scattered fibroglandular densities. Findings: Analyzed By CAD. Bilateral chronic nodularity, left greater than right. There is no suspicious group of microcalcifications or new suspicious mass in either breast. Overall Assessment: Benign, BI-RAD 2 Management: Screening Mammogram of both breasts in 1 year. . Patient should continue monthly self-breast exams. A clinical breast exam by your physician is recommended on an annual basis. This exam should not preclude additional follow-up of suspicious palpable abnormalities. Note on Martina scores and lifetime risk: 1. A Martina score greater than 3% is considered moderate risk. If this is the case, consider specialist referral to assess eligibility for a risk reducing agent. 2. If overall lifetime risk for the development of breast cancer is 20% or higher, the patient may qualify for future screening with alternating mammogram and breast MRI. Electronically signed and approved by: Heidi Dotson M.D. Radiologist
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
== END | disposition home or self-care (01) ==
LOC: RADMAMWWP 07:17
PROVIDERS: ATTEND Family Medicine
DX: Z12.31 Encounter for screening mammogram for malignant neoplasm of breast (principal); Z78.0 Asymptomatic menopausal state
CPT/HCPCS: 77063; 77067; 77080

== ENCOUNTER → 2023-10-17 | Outpatient (CLI) | payer BC, MEDICARE ==
--- NOTE | 2023-10-17 10:40 | US ---
EXAMINATION TYPE: US Aorta Screening DATE OF EXAM: 10/17/2023 COMPARISON: NONE CLINICAL INDICATION: Female, 58 years old with history of Z13.6 ENCOUNTER FOR SCREENING; screening TECHNIQUE: Multiple sonographic images of the abdominal aorta are obtained. FINDINGS: EXAM MEASUREMENTS: Abdominal Aorta: Proximal: 2.0x2.1 Mid: 1.7x1.8 Distal: 1.1x1.5 Bifurcation: Right Iliac: 0.9x1.1 Left Iliac: 0.8x0.8 VENDING MACHINE REPAIRER NOTES: mild plaque distal aorta, exam slightly limited by bowel and body habitus IMPRESSION: 1. Mild atheromatous changes in the distal abdominal aorta. 2. No aneurysmal dilatation of the abdominal aorta with aortic measurements listed above.
--- NOTE | 2023-10-20 08:05 | MM ---
Reason for Exam: Screening (asymptomatic). Last screening mammogram was performed 12 month(s) ago. Patient History: Menarche at age 11. First Full-Term at age 31. Late child-bearing (after 30). Postmenopausal. Risk Values: Martina 5 year model risk: 1.9%. NCI Lifetime model risk: 10.2%. Prior Study Comparison: 08/26/2018 Bilateral Screening Mammogram, [facility]. 10/11/2021 Bilateral MG screening mammo w CAD, [facility]. 10/15/2022 Bilateral MG 3D screening mammo w/cad, [facility]. Tissue Density: There are scattered areas of fibroglandular density. Findings: Analyzed By CAD. There is no suspicious group of microcalcifications in either breast. Asymmetric density 10 cm from the nipple upper outer right breast. Additional views are recommended. Overall Assessment: Incomplete: need additional imaging evaluation, BI-RAD 0 Management: Diagnostic Mammogram of the right breast. . Patient should continue monthly self-breast exams. A clinical breast exam by your physician is recommended on an annual basis. This exam should not preclude additional follow-up of suspicious palpable abnormalities. Note on Martina scores and lifetime risk: 1. A Martina score greater than 3% is considered moderate risk. If this is the case, consider specialist referral to assess eligibility for a risk reducing agent. 2. If overall lifetime risk for the development of breast cancer is 20% or higher, the patient may qualify for future screening with alternating mammogram and breast MRI. Electronically signed and approved by: Eliud Jon M.D. Radiologis
== END | disposition home or self-care (01) ==
LOC: RADUSWWP 06:56
PROVIDERS: ATTEND Family Medicine
DX: Z12.31 Encounter for screening mammogram for malignant neoplasm of breast (principal); Z13.6 Encounter for screening for cardiovascular disorders; Z78.0 Asymptomatic menopausal state; I70.0 Atherosclerosis of aorta
CPT/HCPCS: 76706; 77067

== ENCOUNTER → 2023-10-28 | Outpatient (CLI) | payer BC, MEDICARE ==
--- NOTE | 2023-10-28 09:12 | MM ---
Reason for Exam: Additional evaluation requested from abnormal screening. Last screening mammogram was performed less than 1 month ago. Patient History: Menarche at age 11. First Full-Term at age 31. Late child-bearing (after 30). Postmenopausal. Risk Values: Martina 5 year model risk: 1.9%. NCI Lifetime model risk: 10.2%. Prior Study Comparison: 08/11/1999 Bilateral Screening Mammogram, [facility]. 03/07/2011 Bilateral Screening Mammogram, [facility]. 03/11/2012 Bilateral Screening Mammogram, [facility]. 03/17/2012 Left Diagnostic Mammogram, [facility]. 07/29/2014 Bilateral Screening Mammogram, [facility]. 06/04/2016 Bilateral Screening Mammogram, [facility]. 08/20/2017 Bilateral Screening Mammogram, [facility]. 08/26/2018 Bilateral Screening Mammogram, [facility]. 10/11/2021 Bilateral MG screening mammo w CAD, [facility]. 10/15/2022 Bilateral MG 3D screening mammo w/cad, [facility]. 10/17/2023 Bilateral MG screening mammo w CAD, [facility]. Tissue Density: Right: There are scattered areas of fibroglandular density. Findings: Analyzed By CAD. The questioned upper outer quadrant focal asymmetry disperses on additional views. Findings compatible with superimposition shadow. Overall Assessment: Benign, BI-RAD 2 Management: Screening Mammogram of both breasts in 1 year. . Results were given to the patient verbally at the time of exam. Patient should continue monthly self-breast exams. A clinical breast exam by your physician is recommended on an annual basis. This exam should not preclude additional follow-up of suspicious palpable abnormalities. Note on Martina scores and lifetime risk: 1. A Martina score greater than 3% is considered moderate risk. If this is the case, consider specialist referral to assess eligibility for a risk reducing agent. 2. If overall lifetime risk for the development of breast cancer is 20% or higher, the patient may qualify for future screening with alternating mammogram and breast MRI. Electronically signed and approved by: Heidi Dotson M.D. Radiologist
== END | disposition home or self-care (01) ==
LOC: RADMAMWWP 08:29
PROVIDERS: ATTEND Family Medicine
DX: Z12.31 Encounter for screening mammogram for malignant neoplasm of breast (principal); R92.8 Other abnormal and inconclusive findings on diagnostic imaging of breast; R92.321 Mammographic fibroglandular density, right breast; Z78.0 Asymptomatic menopausal state
CPT/HCPCS: 77061; 77065

== ENCOUNTER → 2024-01-21 | Outpatient (CLI) | payer BC, MEDICARE ==
--- NOTE | 2024-01-21 14:52 | XR ---
EXAMINATION TYPE: XR shoulder complete RT DATE OF EXAM: 01/21/2024 2:40 PM INDICATION: Patient age:Female; 58 years old; Reason for study: M25.511 PAIN IN RIGHT SHOULDER; COMPARISON: None TECHNIQUE: The right shoulder was examined in AP, internally rotated and scapular Y projections. . FINDINGS: No evidence of acute osseous pathology, joint dislocation, or soft tissue swelling. The remaining por tions of the visualized chest are unremarkable. IMPRESSION: No acute osseous pathology. [facility], , 01/21/2024 2:50 PM
== END | disposition home or self-care (01) ==
LOC: RADXRMAIN 14:24
PROVIDERS: ATTEND Nurse Practitioner Family
DX: M25.511 Pain in right shoulder (principal)

== ENCOUNTER → 2024-08-17 | Outpatient (CLI) | payer BC, MEDICARE ==
--- NOTE | 2024-08-18 13:08 | MR ---
EXAMINATION TYPE: MR knee RT wo con DATE OF EXAM: 08/17/2024 8:28 PM COMPARISON: Plain film 08/13/2024 CLINICAL INDICATION: Female, 59 years old with history of M25.561, Right knee pain TECHNIQUE: Multi planar, multi sequence imaging was performed of the knee including: Triplane proton density fat-saturated images and T1-weighted imaging. No Gadolinium was given. IV Contrast: mL (none if empty) FINDINGS: Medial meniscus: Intact Medial femorotibial cartilage: Grade-II chondromalacia. Medial collateral ligament: Intact Lateral meniscus: Intact Lateral femorotibial cartilage: Grade-II chondromalacia. Lateral collateral ligament complex: Intact Patellofemoral alignment: Normal Patellofemoral cartilage: Grade-II chondromalacia. Extensor mechanism: Intact. Joint/bursal fluid: None. Muscles/tendons: The patellar tendon, quadriceps tendon, IT band, pes anserinus tendons, semimembrano johnnie tendon, popliteus tendon, and biceps femoris tendon are all within normal limits. Bone marrow: Normal. Anterior cruciate ligament: Intact. Posterior cruciate ligament: Intact. Soft tissues: Subcutaneous streaky edema throughout the leg. Small Sanchez cyst measuring up to 15 x 8 mm present few scattered thin septations present. IMPRESSION: 1. No definitive evidence to suggest meniscal tear nor ligamentous injury. 2. Mild osteoporosis changes of the knee. 3. MCL/PCL/ACL/LCL are intact. 4. Nonspecific subcutaneous edema throughout the leg. 5. Small complex Sanchez's cyst. [facility], , 08/18/2024 1:06 PM
== END | disposition home or self-care (01) ==
LOC: RADMRIMAIN 20:15
PROVIDERS: ATTEND Orthopaedic Surgery
DX: M81.0 Age-related osteoporosis without current pathological fracture (principal); R60.0 Localized edema; M71.21 Synovial cyst of popliteal space [Baker], right knee

== ENCOUNTER → 2024-10-28 | Outpatient (CLI) | payer BC, MEDICARE ==
--- NOTE | 2024-10-28 10:59 | MM ---
Reason for Exam: Screening (asymptomatic). Last mammogram was performed 1 year(s) and 1 month(s) ago. Patient History: Menarche at age 11. First Full-Term at age 31. Late child-bearing (after 30). Postmenopausal. Patient has history of breast feeding. Risk Values: Martina 5 year model risk: 2.0%. NCI Lifetime model risk: 10.0%. Prior Study Comparison: 08/20/2017 Bilateral Screening Mammogram, [facility]. 08/26/2018 Bilateral Screening Mammogram, [facility]. 10/11/2021 Bilateral MG screening mammo w CAD, [facility]. 10/15/2022 Bilateral MG 3D screening mammo w/cad, [facility]. 10/17/2023 Bilateral MG screening mammo w CAD, [facility]. 10/28/2023 Right MG 3D work up w/cad RT, [facility]. Tissue Density: There are scattered areas of fibroglandular density. Findings: Analyzed By CAD. Chronic nodularity on the left. There is no suspicious group of microcalcifications or new suspicious mass in either breast. Overall Assessment: Benign, BI-RAD 2 Management: Screening Mammogram of both breasts in 1 year. Patient should continue monthly self-breast exams. A clinical breast exam by your physician is recommended on an annual basis. This exam should not preclude additional follow-up of suspicious palpable abnormalities. Note on Martina scores and lifetime risk: 1. A Martina score greater than 3% is considered moderate risk. If this is the case, consider specialist referral to assess eligibility for a risk reducing agent. 2. If overall lifetime risk for the development of breast cancer is 20% or higher, the patient may qualify for future screening with alternating mammogram and breast MRI. [facility], , 10/28/2024 10:56 AM. Electronically signed and approved by: Heidi Dotson M.D. Radiologist
--- NOTE | 2024-10-28 11:51 | BD ---
EXAMINATION TYPE: Axial Bone Density DATE OF EXAM: 10/28/2024 CLINICAL HISTORY: 59 years old Female. ICD-10 CODE: N959 POST GURU ISSUES , Additional History: Height: 67.5 Weight: 233.6 FRAX RISK QUESTIONS: Alcohol (3 or more units per day): no Family History (Parent hip fracture): no Glucocorticoids (More than 3mos): no (Ex: prednisone, prednisolone, methylprednisolone, dexamethasone, and hydrocortisone). History of Fracture in Adulthood: no Secondary Osteoporosis: 1. Type 1 Diabetes: no 2. Hyperthyroidism: no 3. Menopause before 45: no 4. Malnutrition: no 5. Chronic liver disease: no Rheumatoid Arthritis: no Current Tobacco Use: yes RISK FACTORS HISTORY OF: Surgery to Spine/Hip(right/left)/Wrist (right/left): no EXAM MEASUREMENTS: Bone mineral densitometry was performed using the [employer] System. Bone mineral density as measured about the Lumbar spine is: ----- L1-L4(G/cm2): 1.268 T Score Values are as follows: ----- L1: -0.7 ----- L2: 0.4 ----- L3: 1.4 ----- L4: 1.3 ----- L1-L4: 0.7 Z Score Values are as follows: ----- L1: -0.1 ----- L2: 0.4 ----- L3: 1.4 ----- L4: 1.4 ----- L1-L4: 0.8 Bone mineral density has: increased 1.6 % since study of: 2022 Bone mineral density about the R hip (g/cm2): 1.056 Bone mineral density about the L hip (g/cm2): 0.836 T Score values are as follows: -----R Neck: -0.2 -----L Neck: -1.7 -----R Total: 0.4 -----L Total: -1.4 Z Score values are as follows: -----R Neck: 0.3 -----L Neck: -1.2 -----R Total: 0.5 -----L Total: -1.3 Bone mineral density has: decreased -2.9 % since study of: 2022 FRAX%s: The graph provided illustrates a 8.1% chance for a major osteoporotic fx and a 1.3% chance fo r the hips probability for fx in 10 years time. IMPRESSION: Osteopenia (T Score between -2.5 and -1). There is slightly increased risk of fracture and the patient may be considered for treatment. Re-Screen 2-5 years. NOTE: T-SCORE=SD OF THE YOUNG ADULT MEAN. [facility], , 10/28/2024 11:49 AM
== END | disposition home or self-care (01) ==
LOC: RADMAMWWP 08:08
PROVIDERS: ATTEND Family Medicine
DX: Z12.31 Encounter for screening mammogram for malignant neoplasm of breast (principal); R92.323 Mammographic fibroglandular density, bilateral breasts; M85.89 Other specified disorders of bone density and structure, multiple sites; Z78.0 Asymptomatic menopausal state
CPT/HCPCS: 77063; 77067; 77080